=== PATIENT | male | born 1975 | race Caucasian/White ===

== ENCOUNTER 2019-12-25 10:24 | Emergency (ER) | payer OTHER ==
[~2019-12-25] VITALS: Ht 188 cm; Wt 93.2 kg
[2019-12-25] MEDS ORDERED: DIPH,PERTUSS(ACELL),TET VAC/PF 0.5 ML IM-VACC ONE ×2 (10:50→11:00)
[2019-12-25 12:27] VITALS: BP 134/78
== END 2019-12-25 12:30 | disposition home or self-care (01) ==
LOC: ED 11:20
DX: S22.41XA Multiple fractures of ribs, right side, initial encounter for closed fracture (principal); S52.502A Unspecified fracture of the lower end of left radius, initial encounter for closed fracture; S27.0XXA Traumatic pneumothorax, initial encounter; V27.0XXA Motorcycle driver injured in collision with fixed or stationary object in nontraffic accident, initial encounter; Y93.89 Activity, other specified; Y92.89 Other specified places as the place of occurrence of the external cause; Y99.8 Other external cause status
CPT/HCPCS: 29125; 71250; 90471; 90715; 99284

== ENCOUNTER 2019-12-30 08:33 | Emergency (ER) | payer OTHER ==
[~2019-12-30] VITALS: Ht 188 cm; Wt 96.0 kg
[2019-12-30 08:37] VITALS: BP 120/85
--- NOTE | 2019-12-30 09:25 | NUR ---
FIRST INTERACTION W/ PT DUE TO PATIENT LOAD. THIS IS A 44 YO M HERE FOR RECHECK TO PNEUMOTHORAX DX A FEW DAYS AGO. PT REPORTS HE SUSTAINED SEVERAL RIB FX. PT RESTING ON [employer] W/ CALL LIGHT IN REACH, RESP EVEN AND UNLABORED, NADN. AWAITING XR.
--- NOTE | 2019-12-30 09:50 | NUR ---
PT RETURNED FROM XR, RESP EVEN AND UNLABORED, NADN.
--- NOTE | 2019-12-30 10:36 | NUR ---
Patient given discharge instructions and they have confirmed that they understand the instructions. Patient ambulatory with steady gait.
== END 2019-12-30 10:37 | disposition home or self-care (01) ==
LOC: ED 09:17
DX: S22.41XA Multiple fractures of ribs, right side, initial encounter for closed fracture (principal); S27.0XXA Traumatic pneumothorax, initial encounter; S43.101A Unspecified dislocation of right acromioclavicular joint, initial encounter; X58.XXXA Exposure to other specified factors, initial encounter; Y93.89 Activity, other specified; Y92.89 Other specified places as the place of occurrence of the external cause; Y99.8 Other external cause status
CPT/HCPCS: 71046; 99284